=== PATIENT | female | born 1980 | race Caucasian/White ===

== ENCOUNTER 2020-06-14 02:52 | Emergency (ER) | payer MEDICAID ==
[~2020-06-14] VITALS: Ht 160 cm; Wt 52.2 kg
--- NOTE | ~2020-06-14 | EMS ---
[address] [address] EMS Patient Care Report Name: GREER GUILLEN Room #: REG SHWETHA Alarcon#: [id number] Admission: 06/14/20 Attend Phys: Discharge: Date of : 76 Report #: [id number] THIS REPORT FOR: //name// Report Transmitted: 06/14/2020 03:39 EMS Care Summary [place], [place]/[facility] Incident [id number] @ 06/14/2020 02:22 Incident Location [address] [place] [address] Patient GREER GUILLEN Female, 40 Years 1980 Patient Address [address] [place] [address] Patient History IV Drug Use/Abuse,Chronic Kidney Disease, Patient Allergies Other drug allergy, Patient Medications None Reported, Chief Complaint DETOX/FLANK PAIN Disposition Transported No Lights/[place] Dispatch Reason Breathing Problem Transported To [facility] Narrative RESPONDED TO [facility]ING PROBLEMS AT [facility]. UPON ARRIVAL PT FOUND ON COUCH ALERT AND ORIENTED BUT HYPERVENTILATING AND CRYING. PT FRIEND REPORTS PT HAS BEEN CLEAN OF METH FOR 4 DAYS AND HX OF KIDNEY DISEASE. PT IS COACHED TO CALM DOWN AND ASSISTED TO COT NEARBY. PT REPORTS LEFT SDED FLANK PAIN FOR [address] [address] EMS Patient Care Report Name: GREER GUILLEN Room #: REG SHWETHA Alarcon#: [id number] Admission: 06/14/20 Attend Phys: Discharge: Date of : 76 Report #: [id number] UNSPECIFIED AMOUNT OF DAYS. PT VITALS OBTAINED. PT TRANSPORTED TO [facility] WITH NO CHANGE IN CONDITION. PT SCOOTED TO BED AND HANDRAILS UP. REPORT GIVEN TO NURSE. Initial Vitals @02:48P: 88,R: 14,BP: 110/72,SpO2: 99, @02:44P: 98,R: 14,BP: 112/70,Pain: 6/10,GCS: 15,SpO2: 99,Revised Trauma: 12, Assessments @02:37MENTAL:Person Oriented,Time Oriented,Place Oriented,Event Oriented,SKIN:HEENT:Head/Face: No Abnormalities,Eyes: No Abnormalities,Neck/Airway: No Abnormalities,LUNG SOUNDS:General: No Abnormalities,Left Upper: No Abnormalities,Right Upper: No Abnormalities,Left Lower: No Abnormalities,Right Lower: No Abnormalities,ABDOMEN:General: No Abnormalities,Left Upper: No Abnormalities,Right Upper: No Abnormalities,Left Lower: No Abnormalities,Right Lower: No Abnormalities,PELVIS//GI:No Abnormalities,EXTREMITIES:Left Arm: No Abnormalities,Right Arm: No Abnormalities,Left Leg: No Abnormalities,Right Leg: No Abnormalities,PULSE:NEURO:No Abnormalities,@02:45MENTAL:No Abnormalities,SKIN:No Abnormalities,HEENT:Head/Face: No Abnormalities,Eyes: No Abnormalities,Neck/Airway: No Abnormalities,LUNG SOUNDS:General: No Abnormalities,Left Upper: No Abnormalities,Right Upper: No Abnormalities,Left Lower: No Abnormalities,Right Lower: No Abnormalities,ABDOMEN:General: No Abnormalities,Left Upper: No Abnormalities,Right Upper: No Abnormalities,Left Lower: No Abnormalities,Right Lower: No Abnormalities,PELVIS//GI:No Abnormalities,EXTREMITIES:Left Arm: No Abnormalities,Right Arm: No Abnormalities,Left Leg: No Abnormalities,Right Leg: No Abnormalities,PULSE:NEURO:No Abnormalities, Impression Pain (Non-Traumatic) Procedures @02:37ALS AssessmentResponse: UnchangedSucceeded Timeline 02:21,Call Received 02:21,Dispatch Notified 02:22,Dispatched 02:25,En Route 02:35,On Scene 02:37,At Patient 02:37,ALS Assessment,Response: UnchangedSucceeded, 02:44,BP: 112/70 M,PULSE: 98,RR: 14 R,SPO2: 99 Ox,ETCO2: ,BG: ,PAIN: 6,GCS: 15, 02:45,Depart Scene 02:48,BP: 110/72 M,PULSE: 88,RR: 14 R,SPO2: 99 Ox,ETCO2: ,BG: ,PAIN: ,GCS: , [address] [place] [address] EMS Patient Care Report Name: GREER GUILLEN Room #: REG SHWETHA Alarcon#: [id number] Admission: 06/14/20 Attend Phys: Discharge: Date of : 76 Report #: [id number] 02:49,At Destination 03:01,Call Closed Disclaimer v1.1 Copyright 2020 [employer] This EMS Care Summary contains data elements from the applicable legal record (which may be displayed differently). It is designed to provide pertinent information for the following purposes: continuity of care, clinical quality, and state data reporting. The complete legal record is available to ED staff and administrators of the receiving hospital in [employer]'s Patient Tracker. All data is provided "as is."
--- NOTE | ~2020-06-14 | EMS ---
[address] [address] EMS Patient Care Report Name: GREER GUILLEN Room #: REG SHWETHA Alarcon#: [id number] Admission: 06/14/20 Attend Phys: Discharge: Date of : 76 Report #: [id number] THIS REPORT FOR: //name// Report Transmitted: 06/14/2020 04:23 EMS Care Summary [place], [place]/[facility] Incident [id number] @ 06/14/2020 02:22 Incident Location [address] [place] [address] Patient GREER GUILLEN Female, 40 Years 1980 Patient Address [address] [place] [address] Patient History IV Drug Use/Abuse,Chronic Kidney Disease, Patient Allergies Other drug allergy, Patient Medications None Reported, Chief Complaint DETOX/FLANK PAIN Disposition Transported No Lights/[place] Dispatch Reason Breathing Problem Transported To [facility] Narrative RESPONDED TO BREATHING PROBLEMS AT [facility]. UPON ARRIVAL PT FOUND ON COUCH ALERT AND ORIENTED BUT HYPERVENTILATING AND CRYING. PT FRIEND REPORTS PT HAS BEEN CLEAN OF METH FOR 4 DAYS AND HX OF KIDNEY DISEASE. PT IS COACHED TO CALM DOWN AND ASSISTED TO COT NEARBY. PT REPORTS LEFT SDED FLANK PAIN FOR [address] [address] EMS Patient Care Report Name: GREER GUILLEN Room #: REG SHWETHA Alarcon#: [id number] Admission: 06/14/20 Attend Phys: Discharge: Date of : 76 Report #: [id number] UNSPECIFIED AMOUNT OF DAYS. PT VITALS OBTAINED. PT TRANSPORTED TO [facility] WITH NO CHANGE IN CONDITION. PT SCOOTED TO BED AND HANDRAILS UP. REPORT GIVEN TO NURSE. Initial Vitals @02:48P: 88,R: 14,BP: 110/72,SpO2: 99, @02:44P: 98,R: 14,BP: 112/70,Pain: 6/10,GCS: 15,SpO2: 99,Revised Trauma: 12, Assessments @02:37MENTAL:Person Oriented,Time Oriented,Place Oriented,Event Oriented,SKIN:HEENT:Head/Face: No Abnormalities,Eyes: No Abnormalities,Neck/Airway: No Abnormalities,LUNG SOUNDS:General: No Abnormalities,Left Upper: No Abnormalities,Right Upper: No Abnormalities,Left Lower: No Abnormalities,Right Lower: No Abnormalities,ABDOMEN:General: No Abnormalities,Left Upper: No Abnormalities,Right Upper: No Abnormalities,Left Lower: No Abnormalities,Right Lower: No Abnormalities,PELVIS//GI:No Abnormalities,EXTREMITIES:Left Arm: No Abnormalities,Right Arm: No Abnormalities,Left Leg: No Abnormalities,Right Leg: No Abnormalities,PULSE:NEURO:No Abnormalities,@02:45MENTAL:No Abnormalities,SKIN:No Abnormalities,HEENT:Head/Face: No Abnormalities,Eyes: No Abnormalities,Neck/Airway: No Abnormalities,LUNG SOUNDS:General: No Abnormalities,Left Upper: No Abnormalities,Right Upper: No Abnormalities,Left Lower: No Abnormalities,Right Lower: No Abnormalities,ABDOMEN:General: No Abnormalities,Left Upper: No Abnormalities,Right Upper: No Abnormalities,Left Lower: No Abnormalities,Right Lower: No Abnormalities,PELVIS//GI:No Abnormalities,EXTREMITIES:Left Arm: No Abnormalities,Right Arm: No Abnormalities,Left Leg: No Abnormalities,Right Leg: No Abnormalities,PULSE:NEURO:No Abnormalities, Impression Pain (Non-Traumatic) Procedures @02:37ALS AssessmentResponse: UnchangedSucceeded Timeline 02:21,Call Received 02:21,Dispatch Notified 02:22,Dispatched 02:25,En Route 02:35,On Scene 02:37,At Patient 02:37,ALS Assessment,Response: UnchangedSucceeded, 02:44,BP: 112/70 M,PULSE: 98,RR: 14 R,SPO2: 99 Ox,ETCO2: ,BG: ,PAIN: 6,GCS: 15, 02:45,Depart Scene 02:48,BP: 110/72 M,PULSE: 88,RR: 14 R,SPO2: 99 Ox,ETCO2: ,BG: ,PAIN: ,GCS: , [address] [place] [address] EMS Patient Care Report Name: GREER GUILLEN Room #: REG SHWETHA Alarcon#: [id number] Admission: 06/14/20 Attend Phys: Discharge: Date of : 76 Report #: [id number] 02:49,At Destination 03:01,Call Closed Disclaimer v1.1 Copyright 2020 [employer] This EMS Care Summary contains data elements from the applicable legal record (which may be displayed differently). It is designed to provide pertinent information for the following purposes: continuity of care, clinical quality, and state data reporting. The complete legal record is available to ED staff and administrators of the receiving hospital in [employer]'s Patient Tracker. All data is provided "as is."
[2020-06-14 03:58] LABS: ABSOLUTE NEUTROPHILS 3.9 thou/uL (1.4-8.2); HEMOGLOBIN 13.1 gm/dL (12.0-15.0); LYMPHOCYTES 45.2 % (24.0-44.0); MCH 30.1 pg (26.0-34.0); MCHC 33.7 g/dL (28.0-37.0); MCV 89.2 fL (80.0-100.0); MONOCYTES 8.4 % (1.0-8.0); PLATELET COUNT 313 thou/uL (150-400); POLYS 43.4 % (36.0-66.0); RBC 4.37 mil/uL (4.20-5.00); RDW 12.9 % (10.5-14.5); WBC 9.1 thou/uL (4.0-11.0)
[2020-06-14 04:02] LABS: ANION GAP 9 mmol/L (7-16); BUN 10 mg/dL (7-18); CALCIUM 8.4 mg/dL (8.5-10.1); CHLORIDE 106 mmol/L (98-107); CO2 28 mmol/L (21-32); CREATININE 0.8 mg/dL (0.6-1.0); GLUCOSE 94 mg/dL (74-106); SODIUM 143 mmol/L (136-145)
[2020-06-14 04:08] LABS: ALBUMIN 3.2 g/dL (3.4-5.0); DIRECT BILIRUBIN < 0.1 mg/dL (<0.1-0.2); LIPASE 149 U/L (73-393); SGOT 36 U/L (15-37); SGPT 31 U/L (30-65); TOTAL BILIRUBIN 0.2 mg/dL (0.2-1.0); TOTAL PROTEIN 6.6 g/dL (6.4-8.2)
[2020-06-14 04:33] LABS: URINE BILIRUBIN NEGATIVE (Negative); URINE BLOOD TRACE (Negative); URINE CLARITY CLEAR; URINE COLOR YELLOW; URINE GLUCOSE-RANDOM* NEGATIVE (Negative); URINE KETONES NEGATIVE (Negative); URINE NITRITE-REFLEX NEGATIVE (Negative); URINE PROTEIN (DIPSTICK) NEGATIVE (Negative); URINE UROBILINOGEN 0.2 E.U./dl (0.2-1.0)
[2020-06-14 04:37] LABS: URINE LEUKOCYTES-REFLEX 2+ (Negative)
[2020-06-14 04:50] LABS: CASTS None Seen /LPF (None Seen); CRYSTALS None Seen /LPF (None Seen); MUCUS 0-3 Light strn/LPF (None Seen); SQUAMOUS 0-3 Few /LPF (0-3); URINE RBC 3-10 Few /HPF (0-2); URINE WBC-REFLEX 6-15 Few /HPF (0-5)
[2020-06-14] MEDS ORDERED: KEFLEX500 M1 PO (05:05)
[2020-06-14 05:38] VITALS: BP 95/50
--- NOTE | 2020-06-14 06:53 | NUR ---
[facility] IS COMING TO PICK PATIENT UP.
== END 2020-06-14 05:42 | disposition home or self-care (01) ==
LOC: ER 02:52
PROVIDERS: Emergency Medicine
DX: N39.0 Urinary tract infection, site not specified (principal); M54.9 Dorsalgia, unspecified; Z90.49 Acquired absence of other specified parts of digestive tract; Z90.710 Acquired absence of both cervix and uterus; Z88.8 Allergy status to other drugs, medicaments and biological substances